=== PATIENT | male | born 1990 | race African-American/Black ===

== ENCOUNTER 2016-07-05 15:30 | Emergency (ER) | payer OTHER ==
--- NOTE | 2016-07-05 16:55 | CT ---
CHEST CT WITHOUT CONTRAST HISTORY: Right-sided rib pain x2 days, no injury. TECHNIQUE: No intravenous contrast administered; contiguous axial images were acquired from the thoracic inlet to the diaphragmatic hiatus. COMPARISON: None. FINDINGS: THORACIC AORTA: Normal caliber. No evidence of dissection. LUNGS: Minor atelectatic change of the right lung base. No gross airspace disease or pleural effusion. No pneumothorax. JEFFERSON AND MEDIASTINUM: No abnormally enlarged lymph nodes. MAJOR AIRWAYS: Grossly unremarkable. AXILLAE: No grossly enlarged lymph nodes. UPPER ABDOMEN: Hepatomegaly with fatty infiltration of the liver. OSSEOUS STRUCTURES: No grossly destructive lesions. A right-sided rib fracture is not identified . SOFT TISSUES: Evidence of gynecomastia. IMPRESSION: No CT findings of rib fracture, pleural effusion, or thorax. Minor atelectatic change at the right lung base. Fatty infiltration of the liver. Results were electronically transmitted to the electronic medical record at 07/05/2016 at 1651 hours.
== END 2016-07-05 17:35 | disposition home or self-care (01) ==
LOC: ED 15:30
DX: R07.81 Pleurodynia (principal); R07.9 Chest pain, unspecified; I10 Essential (primary) hypertension